=== PATIENT | female | born 1955 | race Caucasian/White ===

== ENCOUNTER 2020-08-28 11:38 | Observation (INO) ==
[2020-08-28] MEDS ORDERED: HYDROmorphone 2 MG/1 ML VIAL IV STA ×2 (12:00→13:21)
[2020-08-28] MEDS ORDERED: ONDANSETRON 4 MG/2 ML VIAL IV STA (12:00)
[2020-08-28] MEDS ORDERED: ONDANSETRON 4 MG/2 ML VIAL ONE (12:05)
[2020-08-28] MEDS ORDERED: HYDROmorphone 2 MG/1 ML VIAL ONE (12:06)
[2020-08-28] MEDS ORDERED: fentaNYL 100 MCG/2 ML VIAL ONE (14:25)
[2020-08-28] MEDS ORDERED: SUCCINYLCHOLINE 200 MG/10 ML VIAL ONE (14:26)
[2020-08-28] MEDS ORDERED: propofoL 200 MG/20 ML VIAL IV ONE (14:34)
[2020-08-28] MEDS ORDERED: LIDOCAINE 2% 5 ML VIAL ONE (14:34)
[2020-08-28] MEDS ORDERED: ceFAZolin 1,000 MG VIAL ONE (14:37)
[2020-08-28] MEDS ORDERED: ACETAMINOPHEN INJ 1,000 MG/100 ML VIAL IV ONE (15:45)
[2020-08-28] MEDS ORDERED: KETOROLAC 30 MG/1 ML VIAL ONE (15:45)
[2020-08-28] MEDS ORDERED: SEVOFLURANE 1 UNIT/15 MINUTE INH ONE (15:48)
[2020-08-28] MEDS ORDERED: PHENYLEPHRINE 1 MG/10 ML SYRINGE IV ONE (15:48)
[2020-08-28] MEDS ORDERED: HYDROmorphone 2 MG/1 ML VIAL IV PRN (15:58)
[2020-08-28] MEDS: ONDANSETRON 4 MG/2 ML VIAL IV PRN ×2 (16:16→17:05)
[2020-08-28 18:11] VITALS: BP 150/77
== END 2020-08-28 18:56 | disposition home or self-care (01) ==
LOC: N.ED 11:38 → N.EDINP 11:38 → N.3E 14:08
PROVIDERS: ADMIT Orthopaedic Surgery; ATTEND Orthopaedic Surgery